=== PATIENT | female | born 1985 | race Caucasian/White ===

== ENCOUNTER 2024-04-15 10:12 | Outpatient (AMB) | payer OTHER, SELFPAY ==
[2024-04-15 10:15] VITALS: BP 124/78; PULSE 64; O2SAT 97; BMI 27.8
--- NOTE | 2024-04-15 10:15 | MHC.PC.OV ---
Vital Signs 04/15/24 10:15 Height 5 ft Weight 142 lb 8 oz BMI 27.8 BP 124/78 Blood Pressure Location Lt brachial Position Sitting Pulse 64 Pulse Source Pulse Oximeter Pulse Oximetry (%) 97 Oxygen Delivery Method Room Air Intake Visit Reasons: medical and health services manager, request a physical Intake Note: Patient is here as a new patient with cardiac issues, has a general repair mechanic Dr. Ingram. Is last menstrual period known: Yes Last menstrual period: 04/10/24 Allergies No Known Allergies Allergy (Verified 04/15/24 10:19) Tobacco use date assessed: 04/15/24 Dental Screening Dental Screen Date: 04/15/24 Did you have a dental visit in the last 12 months?: Yes Did you have a dental problem in the last 6 months where you did not have access to dental care?: No Was dental information given to patient?: Patient has dentist HPI medical and health services manager, request a physical HPI Details New Patient? ?? Prior PCP:? No PCP x 10 yrs Last office visit/CPE:? None in past year Acute issue(s):? h/o SVT since 2 yrs ago. Had been on Metoprolol but had breakthrough and was given Flecanide and has it for prn.. Has Press Setup Operator at [facility], Dr Munroe. Still feels like her heart rate is still fluctuating. ?? PMHx:? SVT & on Flecanide. Preeclamsia. SurgHx:? 2021. [place] Te[place] FHx:? Mom: HLD, COPD, Fibromyalgia, Bipolar, Depression. Dad: HLD, HTN. mGM DM. GF: Heart Disease, Asthma. SocHx: Nonsmoker. EtOH: Social 1-2 dr 1 or 2 x a week. No drugs PFSH Medical History (Updated 04/15/24 @ 11:03 by Andrew Vickers) delivery delivered Pre-eclampsia SVT (supraventricular tachycardia) Surgical History (Updated 04/15/24 @ 10:26 by Vicki Winchester CMA) History of wisdom tooth extraction Family History (Updated 04/15/24 @ 10:29 by Vicki Winchester CMA) Mother COPD (chronic obstructive pulmonary disease) Fibromyalgia High cholesterol Bipolar 1 disorder Anxiety Substance abuse in family Mental health disorder Father Heart disease High cholesterol High blood pressure Substance abuse in family Maternal Grandmother Mental health disorder Social History (Updated 04/15/24 @ 10:32 by Vicki Winchester CMA) Household Members: Family Both parents involved: No Caregiver staying overnight: No Housing: House Are you a primary career development engineer to a significant other at home: Yes Do you presently have visiting nurse or other home services: No 75 years or older and lives alone: No Alcohol intake: never Comment: former Patient Tobacco Use Status: Never used Tobacco e-Cigarette/Vaping Use: Former Use Use of substances other than those prescribed or required for medical reasons: No Have you been hit, kicked, punched, or otherwise hurt by someone within the past year? If so, by whom?: No Do you feel safe in your current relationship?: Yes Is there a partner from a previous relationship who is making you feel unsafe now?: No Are you made to feel afraid or neglected: No Special opal needs: No Are you DNR?: No Advance Directives: No Advance Directives Information Provided: No Advance Directives on File: No Healthcare Proxy: No service: No Current occupational status: employed Current occupation: channel sales manager for insurance. Cognitive needs: No Hearing needs: No Vision needs: Yes (Patient wears glasses) Female Reproductive History Menstrual Date of last menstrual period: 04/10/24 Questionnaire PHQ-9 Over the last 2 weeks, how often have you been bothered by any of the following problems? 1. Little interest or pleasure in doing things: not at all 2. Feeling down, depressed, or hopeless: not at all 3. Trouble falling or staying asleep, or sleeping too much: not at all 4. Feeling tired or having little energy: not at all 5. Poor appetite or overeating: not at all 6. Feeling bad about yourself - or that you are a failure or have let yourself or your family down: not at all 7. Trouble concentrating on things, such as reading the newspaper or watching television: not at all 8. Moving or speaking so slowly that other people could have noticed. Or the opposite - being so fidgety or restless that you have been moving around a lot more than usual: not at all 9. Thoughts that you would be better off or of hurting yourself in some way: not at all Total score: 0 Depression Screening Interpretation: Negative Depression Screening Done: Yes 71083 - PHQ-9 Billing: Yes Source: Developed by Drs. Baldemar Gillespie, Davida Solis, Waldo Rosales and colleagues, with an educational ramos from [employer]. Thrive Questionnaire Date Thrive assessed: 04/15/24 I am a: Patient What is your living situation today?: I have a steady place to live Within the past 12 months, did the food you bought not last and you didn't have the money to get more?: Never true Within the past 12 months, did you worry whether your food would run out before you got money to buy more?: Never true Do you have trouble paying for medicines?: No Do you have trouble getting transportation to medical appointments?: No Do you have trouble paying your heating and electricity bill?: No Do you have trouble taking care of your child, family member or friend?: No Do you have trouble with day-to-day activities such as bathing, preparing meals, shopping, managing finances, etc.?: No Are you currently unemployed and looking for a job?: No Are you interested in more education?: Yes THRIVE Score: 0 AUDIT C Alcohol Use Questionnaire (AUDIT-C) 1. How often do you have a drink containing alcohol?: Never 3. How often do you have six or more drinks on one occasion?: Never Total Score: 0 CHI-7 AMB Questionnaire CHI-7 Date CHI - 7 assessed: 04/15/24 Feeling nervous, anxious, or on edge: 3 = Nearly every day Not being able to stop or control worryin = Nearly every day Worrying too much about different things: 3 = Nearly every day Trouble relaxin = More than half the days Being so restless that it is hard to sit still: 2 = More than half the days Becoming easily annoyed or irritable: 3 = Nearly every day Feeling afraid as if something awful might happen: 2 = More than half the days Total CHI-7 score (0-4 normal; 5-9 mild; 10-14 moderate; 15-21 severe): 18 Source: Developed by Drs. Baldemar Gillespie, Waldo Hernandez and colleagues, with an educational ramos from [employer]. CHI-7 Assessment Billing CHI-7 Assessment Tool: CHI-7 Assessment 47427 Review of Systems Const Denies chills, Denies fatigue, Denies fever(s), Denies headache(s) and Denies weakness ENT Denies dizziness and Denies headache(s) Card Denies chest pain, Denies lightheadedness, Denies dyspnea and Denies other (Palpitations) Resp Denies cough, Denies dyspnea, Denies wheezing and Denies other ( shortness of breath) Musc Denies numbness and Denies tingling Neuro Denies dizziness, Denies headache(s), Denies numbness, Denies tingling, Denies paresthesias and Denies weakness Psych Denies anxiety and Denies depression Endo Denies fatigue Aller/Immun Denies wheezing Physical exam (Primary Care) Vital Signs: Last Vital Signs Pulse 64 04/15/24 10:15 BP 124/78 04/15/24 10:15 Pulse Ox 97 04/15/24 10:15 Oxygen Delivery Method Room Air 04/15/24 10:15 BMI result Body Mass Index 27.8 Tobacco/Smoking Status: Tobacco use Status Tobacco use date assessed 04/15/24 04/15/24 10:38 Patient Tobacco Use Status Never used Tobacco 04/15/24 10:38 e-Cigarette/Vaping Use Former Use 04/15/24 10:38 PHQ-9: PHQ-9 Score PHQ-9: Total score 0 04/15/24 10:58 Depression Screening Interpretation: Negative Thrive Assessment: Date of Thrive Assessment Date Thrive assessed 04/15/24 04/15/24 10:38 Const General: no acute distress and well developed Nutritional Appearance: well nourished Orientation/consciousness: [facility]: Yes normocephalic and Yes atraumatic Eyes General: appearance normal, both eyes and all related structures Pupils: Equal, round and reactive pupils present EOM: EOMs intact bilaterally Resp Effort & Inspection: normal respiratory effort Auscultation: clear to auscultation bilaterally Cardio Rate: regular rate Rhythm: regular rhythm Heart sounds: S1 normal heart sound present, S2 normal heart sound present, no gallops, no murmurs and no rubs Neuro General: patient oriented x3 and gait normal Cranial nerves: Yes Equal, round and reactive pupils present Psych Affect: normal affect Assessment and Plan Assessment & Plan (1) SVT (supraventricular tachycardia): Code(s): I47.10 - Supraventricular tachycardia, unspecified Plan: Recurrent?SVT?with?heart?rates?over?200?and?requiring?flecainide?by?emergency?responders. She?now?has?flecainide?available?p.r.n.?and?has?a?general repair mechanic?with?upcoming?follow-up?in?April.??Dr. Munroe from?[facility]. EKG: ?Mild?sinus?bradycardia,?normal?axis,?no?hypertrophy,?no?ST-T-wave?changes (2) Anxiety: Code(s): F41.9 - Anxiety disorder, unspecified Plan: Moderately?anxious,?particularly?regarding?her?heart?rhythm?which?appears?fine?today?and?I?reassured?her. We?can?follow-up?on?this?after?her?appointment?with?cardiology (3) Laboratory exam ordered as part of routine general medical examination: Code(s): Z00.00 - Encounter for general adult medical examination without abnormal findings Orders: Orders Comprehensive [place]. Panel Fast Today Z00.00 - Encounter for general adult medical examination without abnormal findings Lipid Panel Today Z00.00 - Encounter for general adult medical examination without abnormal findings Microalbumin, Random (w Creat) Today I10 - Essential (primary) hypertension TSH reflex Free T4 Today Z00.00 - Encounter for general adult medical examination without abnormal findings Complete Blood Count Auto Diff Today Z00.00 - Encounter for general adult medical examination without abnormal findings UA and rflx microscopic Today Z00.00 - Encounter for general adult medical examination without abnormal findings Coding Level of Care Code New Pt Level 3 (80983) Diagnoses SVT (supraventricular tachycardia) I47.10 Anxiety F41.9 Laboratory exam ordered as part of routine general medical examination Z00.00 Additional Codes CHI-7 Assessment Billing - CHI-7 Assessment Tool: CHI-7 Assessment 68074 ([id number])
== END 2024-04-15 11:40 | disposition home or self-care (01) ==
PROVIDERS: PCP Family Medicine; Visit Provider Family Medicine
DX: I47.10 Supraventricular tachycardia, unspecified (principal); F41.9 Anxiety disorder, unspecified
CPT/HCPCS: 99203

== ENCOUNTER 2024-06-18 07:38 | Outpatient (REF) | payer OTHER, SELFPAY ==
[2024-06-18 11:28] LABS: Appearance Urine Clear; Color Urine Yellow; Glucose Urine UA Negative (Negative); Leukocyte Esterase Urine Negative (Negative); Nitrite Urine Negative (Negative); PH 6.5 (5.0-9.0); Urine Blood Negative (Negative); Urine Ketones Negative (Negative); Urine Protein Negative (Neg-Trace)
[2024-06-18 11:31] LABS: MANUAL DIFF FLAG NO
[2024-06-18 11:34] LABS: Basophils Absolute Auto 0.1 X10*3/uL (0.0-0.2); Basophils Percent Auto 0.7 % (0-2); Eosinophils Absolute Auto 0.2 X10*3/uL (0.0-0.4); Eosinophils Percent Auto 2.9 % (0-4); Hematocrit 37.8 % (37.0-47.0); Hemoglobin 12.8 g/dl (12.0-16.0); Imm Gran Abs Auto 0.02 X10*3/uL (0.00-0.03); Imm Gran Pct Auto 0.3 % (0.0-0.4); Lymphocytes Absolute Auto 2.4 X10*3/uL (1.2-4.9); Lymphocytes Percent Auto 31.9 % (20-40); Mean Corpuscular HGB Conc 33.9 g/dl (31.0-35.0); Mean Corpuscular Hemoglobin 30.5 pg (27.0-33.0); Mean Corpuscular Volume 90.2 fL (80.0-98.0); Mean Platelet Volume 10.4 fL (9.4-12.3); Monocytes Absolute Auto 0.8 X10*3/uL (0.1-1.2); Monocytes Percent Auto 10.4 % (2-11); Neutrophils Percent Auto 53.8 % (45-73); Platelet Count 240 X10*3/uL (160-400); Red Blood Count 4.19 X10*6/uL (4.20-5.50); Red Cell Distribution Width 12.9 % (11.0-16.0); White Blood Count 7.5 X10*3/uL (4.8-10.8)
[2024-06-18 12:01] LABS: Alanine Aminotransferase 24 U/L (0-31); Alkaline Phosphatase 54 U/L (39-117); Anion Gap 8 (12-20); Aspartate Amino Transferase 26 U/L (5-31); Bilirubin Total 0.5 mg/dL (0.0-1.0); Blood Urea Nitrogen 15 mg/dL (9-16); Calcium 9.5 mg/dL (8.4-10.2); Carbon Dioxide 27 mmol/L (22-29); Chloride 106 mmol/L (96-108); Cholesterol 152 mg/dL (<200); Estimated Glomerular Filt Rate > 60; Glucose Fasting 92 mg/dL (60-99); HDL Cholesterol 52 mg/dL (>40); LDL Cholesterol Calculated 84 mg/dL (<100); Sodium 137 mmol/L (135-145); Total Protein 7.5 g/dL (6.5-8.0); Triglycerides 82 mg/dL (<150)
[2024-06-18 12:19] LABS: TSH reflex Free T4 2.03 uIU/mL (0.32-4.0)
[2024-06-18 12:35] LABS: Creatinine Urine 122.75 mg/dL; Microalbumin Urine < 5.0 mg/L
== END 2024-06-18 07:39 | disposition home or self-care (01) ==
LOC: HO.WFDLDS 07:38
PROVIDERS: Visit Provider Family Medicine
DX: Z00.00 Encounter for general adult medical examination without abnormal findings (principal); I10 Essential (primary) hypertension
CPT/HCPCS: 36415; 80053; 80061; 81003; 82043; 82570; 84443; 85025

== ENCOUNTER 2024-06-23 14:48 | Outpatient (AMB) | payer OTHER, SELFPAY ==
--- NOTE | 2024-06-23 14:54 | A.OFFPC_ITS ---
Vital Signs 06/23/24 15:39 Height 5 ft Weight 144 lb 8 oz BMI 28.2 BP 100/70 Blood Pressure Location Lt brachial Position Sitting Respiration 16 Pulse 72 Pulse Source Pulse Oximeter Temp 98 F Temp Source Tympanic Pulse Oximetry (%) 98 Oxygen Delivery Method Room Air Intake Visit Reasons: 2 month follow up Intake Note: pt questioning if today is a physical exam / follow up Is last menstrual period known: Yes Last menstrual period: 06/25/24 Post menopausal: No Patient : No Allergies No Known Allergies Allergy (Verified 06/23/24 14:56) Tobacco use date assessed: 04/15/24 Dental Screening Dental Screen Date: 04/15/24 HPI 2 month follow up HPI Details 38 y/o female presents for a CPE with f/ u labs and health maintenance. Labs were drawn 06/18/24. Reviewed labs with pt. Triglycerides 82. TC 152. LDL 84. HDL 52. Her labs are fine. Last pap smear about 3 months ago which was normal per pt. No Fhx of breast cancer. HPI Comments History of Present Illness Details Documentation assistance for Freddy Whitman MD, was provided by Andrew Vickers, Flatbed Stitcher on 06/23/2024 at 3:12 PM EST. I, Dr. Whitman, have read, observed, and verified documentation. [facility] Medical History (Updated 06/23/24 @ 15:12 by Andrew Vickers) delivery delivered Pre-eclampsia SVT (supraventricular tachycardia) Surgical History (Updated 04/15/24 @ 10:26 by Vicki Winchester CMA) History of wisdom tooth extraction Family History (Updated 04/15/24 @ 10:29 by Vicki Winchester CMA) Mother COPD (chronic obstructive pulmonary disease) Fibromyalgia High cholesterol Bipolar 1 disorder Anxiety Substance abuse in family Mental health disorder Father Heart disease High cholesterol High blood pressure Substance abuse in family Maternal Grandmother Mental health disorder Social History (Updated 04/15/24 @ 10:32 by Vicki Winchester CMA) Household Members: Family Both parents involved: No Caregiver staying overnight: No Housing: House Are you a primary ocular care aide to a significant other at home: Yes Do you presently have visiting nurse or other home services: No 75 years or older and lives alone: No Alcohol intake: never Comment: former Patient Tobacco Use Status: Never used Tobacco e-Cigarette/Vaping Use: Former Use Special opal needs: No service: No Current occupational status: employed Current occupation: indirect sales representative for insurance. Cognitive needs: No Hearing needs: No Vision needs: Yes (Patient wears glasses) Female Reproductive History Menstrual Date of last menstrual period: 06/25/24 Questionnaire PHQ-9 Over the last 2 weeks, how often have you been bothered by any of the following problems? 1. Little interest or pleasure in doing things: not at all 2. Feeling down, depressed, or hopeless: not at all 3. Trouble falling or staying asleep, or sleeping too much: not at all 4. Feeling tired or having little energy: several days 5. Poor appetite or overeating: not at all 6. Feeling bad about yourself - or that you are a failure or have let yourself or your family down: not at all 7. Trouble concentrating on things, such as reading the newspaper or watching television: several days 8. Moving or speaking so slowly that other people could have noticed. Or the opposite - being so fidgety or restless that you have been moving around a lot more than usual: not at all 9. Thoughts that you would be better off or of hurting yourself in some way: not at all Total score: 2 Depression Screening Interpretation: Negative Depression Screening Done: Yes 26139 - PHQ-9 Billing: Yes Source: Developed by Drs. Baldemar Gillespie, Davida Solis, Waldo Rosales and colleagues, with an educational ramos from [employer]. Thrive Questionnaire Date Thrive assessed: 06/23/24 I am a: Patient What is your living situation today?: I have a steady place to live Within the past 12 months, did the food you bought not last and you didn't have the money to get more?: Never true Within the past 12 months, did you worry whether your food would run out before you got money to buy more?: Never true Do you have trouble paying for medicines?: No Do you have trouble getting transportation to medical appointments?: No Do you have trouble paying your heating and electricity bill?: No Do you have trouble taking care of your child, family member or friend?: No Do you have trouble with day-to-day activities such as bathing, preparing meals, shopping, managing finances, etc.?: No Are you currently unemployed and looking for a job?: No Are you interested in more education?: Yes Please select the resources that you would like help with: None Currently or been in a relationship where the following occur: No concerns reported THRIVE Score: 0 AUDIT C Alcohol Use Questionnaire (AUDIT-C) 1. How often do you have a drink containing alcohol?: Never 3. How often do you have six or more drinks on one occasion?: Never Total Score: 0 Score Reviewed/Action Taken: Yes CHI-7 AMB Questionnaire CHI-7 Date CHI - 7 assessed: 06/23/24 Feeling nervous, anxious, or on edge: 1 = Several days Not being able to stop or control worryin = Several days Worrying too much about different things: 1 = Several days Trouble relaxin = Several days Being so restless that it is hard to sit still: 0 = Not at all Becoming easily annoyed or irritable: 1 = Several days Feeling afraid as if something awful might happen: 1 = Several days Total CHI-7 score (0-4 normal; 5-9 mild; 10-14 moderate; 15-21 severe): 6 Source: Developed by Drs. Baldemar Gillespie, Davida Solis, Waldo Rosales and colleagues, with an educational ramos from [employer]. CHI-7 Assessment Billing CHI-7 Assessment Tool: CHI-7 Assessment 55338 Review of Systems Const Denies chills, Denies fatigue, Denies fever(s), Denies headache(s) and Denies weakness Eyes Denies change in vision ENT Denies dizziness, Denies headache(s), Denies hearing loss, Denies nasal congestion, Denies sinus pain, Denies sinus pressure and Denies sore throat Card Denies chest pain, Denies lightheadedness, Denies dyspnea and Denies other (palpitations) Resp Denies cough, Denies dyspnea and Denies wheezing GI Denies abdominal pain, Denies melena, Denies hematochezia, Denies change in bowel habits, Denies dyspepsia and Denies nausea Denies hematuria and Denies dysuria Musc Denies abnormal gait, Denies myalgias, Denies arthralgias, Denies numbness and Denies tingling Skin/Breast Denies rash, Denies unusual bruising and Denies wounds Neuro Denies abnormal gait, Denies dizziness, Denies headache(s), Denies memory loss, Denies numbness, Denies Sensory deficit (Neuro), Denies tingling and Denies weakness Psych Denies anxiety, Denies depression and Denies memory loss Endo Denies cold intolerance, Denies fatigue, Denies heat intolerance, Denies polydipsia and Denies polyuria Ilan/Lymph Denies easy bleeding and Denies easy bruising Aller/Immun Denies wheezing Physical exam (Primary Care) Vital Signs: Last Vital Signs Temp 98 F 06/23/24 15:39 Pulse 72 06/23/24 15:39 Resp 16 06/23/24 15:39 BP 100/70 06/23/24 15:39 Pulse Ox 98 06/23/24 15:39 Oxygen Delivery Method Room Air 06/23/24 15:39 BMI result Body Mass Index 28.2 Tobacco/Smoking Status: Tobacco use Status Tobacco use date assessed 04/15/24 06/23/24 15:00 Patient Tobacco Use Status Never used Tobacco 06/23/24 15:00 e-Cigarette/Vaping Use Former Use 06/23/24 15:00 PHQ-9: PHQ-9 Score PHQ-9: Total score 2 06/23/24 15:44 Depression Screening Interpretation: Negative Thrive Assessment: Date of Thrive Assessment Date Thrive assessed 06/23/24 06/23/24 15:00 Currently or been in a relationship where the following occur: No concerns reported Const General: no acute distress, well developed, alert and awake Nutritional Appearance: well nourished Orientation/consciousness: patient oriented x3 HENMT Head: Yes normocephalic and Yes atraumatic Ears: hearing grossly normal bilaterally and TM's normal bilaterally General nose exam: Normal external nose present and Normal nares present Mouth: Normal oral and palatal mucosa present and moist mucous membranes Teeth and gingiva: dentition normal Throat: Yes posterior oropharynx normal Eyes General: appearance normal, both eyes and all related structures Pupils: Equal, round and reactive pupils present and Pupil accommodation reflex normal EOM: EOMs intact bilaterally Neck Neck: Yes normal visual inspection, Yes no lymphadenopathy and Yes trachea midline Thyroid: Thyroid normal Carotids: no bruits Lymphatic: no lymphadenopathy noted Chest Chest palpation & inspection: normal inspection of the chest Resp Effort & Inspection: normal respiratory effort Auscultation: clear to auscultation bilaterally Cardio Rate: regular rate Rhythm: regular rhythm Heart sounds: S1 normal heart sound present, S2 normal heart sound present, no gallops, Murmur heart sound present (Slight systolic murmur ) and no rubs Bruits: no abdominal aortic bruits and no carotid bruits GI Palpation (GI): No Abdominal aortic bruit present, Soft to palpation, nontender, No hepatosplenomegaly present and No Rebound tenderness present Auscultation: normal bowel sounds General: Yes no CVA tenderness Back/Spine/Pelvis Back: no CVA tenderness Cervical Spine: cervical ROM normal and No Cervical spine tenderness Thoracic/Lumbar Spine: thoraco-lumbar ROM normal, No pain with thoraco-lumbar ROM, No thoracic spinal tenderness and No lumbar spinal tenderness Skin Lesions: no lesions Rashes: no rashes Trauma: no lacerations or abrasions Wounds: no wounds Nails: normal Neuro General: patient oriented x3 Cranial nerves: Yes Equal, round and reactive pupils present Cognition (Neuro): normal cognition Gait exam (Neuro): Normal gait present Motor exam (neuro): 5/5 motor strength present throughout Sensory Exam: No Sensory deficit (Neuro) Deep tendon reflexes (DTR's): Right patellar reflex intensity grade: 2+ and Left patellar reflex intensity grade: 2+ Extrem General: Yes normal to inspection and No edema Psych Appearance: grossly normal Affect: normal affect Attitude: cooperative Thought process: Normal thought process present Assessment and Plan Assessment & Plan (1) Adult general medical exam: Code(s): Z00.00 - Encounter for general adult medical examination without abnormal findings Plan: 38-year-old?female?presents?for?complete?physical?exam Exam?today?within?normal?range Encouraged?healthy?diet?with?active?lifestyle?and?plenty?of?exercise (2) SVT (supraventricular tachycardia): Code(s): I47.10 - Supraventricular tachycardia, unspecified Plan: Patient?has?had?SVTs?and?is?on?flecainide. Normal?rate?and?rhythm?to?auscultation?today She?has?seen?Dr. Munroe, cardiology?but?I?do?not?have?his?note.??I?have?requested?this. Patient?says?that?she?was?told?she?would?need?an?ablation ?and?wants?a?2nd?opinion.??She?has?already?scheduled?this?with?Dr. Cruz in?[place] in?July. We?can?follow-up?shortly?after (3) Anxiety: Code(s): F41.9 - Anxiety disorder, unspecified Plan: Patient?says?that?her?anxiety?was?primarily?due?to?a?tachycardia?and?palpitation s?which?have?decreased/resolved She?will?let?me?know?if?she?has?any?worsened?anxiety (4) Heart murmur: Code(s): R01.1 - Cardiac murmur, unspecified Plan: Seems?to?have?a?faint?2/6?systolic?murmur?over?mitral?region She?has?an?appointment?with?cardiology?already?and?I?recommended she?discuss?with?Cardiology (5) Screening for cervical cancer: Code(s): Z12.4 - Encounter for screening for malignant neoplasm of cervix Plan: Followed?by??[facility]?and?up-to-date?with?Pap?smears Patient Instructions: She?will?return?in?late?July/early?August?for?follow- up?SVT?and?review?recommendations?from?Cardiology?and?her?cardiology?2nd?opinion . Coding Level of Care Code Est Pt Level 4 (10887) Diagnoses Adult general medical exam Z00.00 SVT (supraventricular tachycardia) I47.10 Anxiety F41.9 Heart murmur R01.1 Screening for cervical cancer Z12.4 Additional Codes CHI-7 Assessment Billing - CHI-7 Assessment Tool: CHI-7 Assessment [id number] ([id number])
[2024-06-23 15:39] VITALS: BP 100/70; PULSE 72; RESP 16; TEMP 36.6; O2SAT 98; BMI 28.2
== END 2024-06-23 15:47 | disposition home or self-care (01) ==
PROVIDERS: PCP Family Medicine; Visit Provider Family Medicine
DX: Z00.00 Encounter for general adult medical examination without abnormal findings (principal); I47.10 Supraventricular tachycardia, unspecified; F41.9 Anxiety disorder, unspecified; R01.1 Cardiac murmur, unspecified
CPT/HCPCS: 99395

== ENCOUNTER 2024-10-23 11:32 | Outpatient (AMB) | payer OTHER, SELFPAY ==
--- NOTE | 2024-10-23 11:40 | A.OFFPC_ITS ---
Vital Signs 10/23/24 11:43 Height 5 ft Weight 146 lb 8 oz BMI 28.6 BP 110/70 Blood Pressure Location Lt brachial Position Sitting Respiration 14 Pulse 72 Pulse Source Pulse Oximeter Pulse Oximetry (%) 99 Oxygen Delivery Method Room Air Intake Visit Reasons: f/u SVT Intake Note: f/u SVT Allergies No Known Allergies Allergy (Verified 10/23/24 11:42) Tobacco use date assessed: 04/15/24 Dental Screening Dental Screen Date: 04/15/24 HPI f/u SVT HPI Details 38 y/o female presents to f/u SVT. She had an appointment with Dr. Munroe and has sought a 2nd opinion from Dr. Cruz in [facility] for SVT. Dr. Munroe had recommended cardiac ablation. Awaiting 2nd opinion. Had noted 2/6 systolic murmur but this seems to have resolved. [facility] Medical History (Updated 06/23/24 @ 15:12 by Andrew Vickers) delivery delivered Pre-eclampsia SVT (supraventricular tachycardia) Surgical History (Updated 04/15/24 @ 10:26 by Vicki Winchester [facility]) History of wisdom tooth extraction Family History (Updated 04/15/24 @ 10:29 by Vicki Winchester CMA) Mother COPD (chronic obstructive pulmonary disease) Fibromyalgia High cholesterol Bipolar 1 disorder Anxiety Substance abuse in family Mental health disorder Father Heart disease High cholesterol High blood pressure Substance abuse in family Maternal Grandmother Mental health disorder Social History (Updated 04/15/24 @ 10:32 by Vicki Winchester CMA) Household Members: Family Both parents involved: No Caregiver staying overnight: No Housing: House Are you a primary landcare officer to a significant other at home: Yes Do you presently have visiting nurse or other home services: No 75 years or older and lives alone: No Alcohol intake: never Comment: former Patient Tobacco Use Status: Never used Tobacco e-Cigarette/Vaping Use: Former Use Special opal needs: No service: No Current occupational status: employed Current occupation: independent sales representative for insurance. Cognitive needs: No Hearing needs: No Vision needs: Yes (Patient wears glasses) Questionnaire PHQ-9 Over the last 2 weeks, how often have you been bothered by any of the following problems? 1. Little interest or pleasure in doing things: more than half the days 2. Feeling down, depressed, or hopeless: not at all 3. Trouble falling or staying asleep, or sleeping too much: not at all 4. Feeling tired or having little energy: several days 5. Poor appetite or overeating: not at all 6. Feeling bad about yourself - or that you are a failure or have let yourself or your family down: not at all 7. Trouble concentrating on things, such as reading the newspaper or watching television: several days 8. Moving or speaking so slowly that other people could have noticed. Or the opp osite - being so fidgety or restless that you have been moving around a lot more than usual: not at all 9. Thoughts that you would be better off or of hurting yourself in some way: not at all Total score: 4 Source: Developed by Drs. Baldemar Gillespie, Davida Solis, Waldo Rosales and colleagues, with an educational ramos from [employer]. Thrive Questionnaire Date Thrive assessed: 06/23/24 I am a: Patient What is your living situation today?: I have a steady place to live Within the past 12 months, did the food you bought not last and you didn't have the money to get more?: Never true Within the past 12 months, did you worry whether your food would run out before you got money to buy more?: Never true Do you have trouble paying for medicines?: No Do you have trouble getting transportation to medical appointments?: No Do you have trouble paying your heating and electricity bill?: No Do you have trouble taking care of your child, family member or friend?: No Do you have trouble with day-to-day activities such as bathing, preparing meals, shopping, managing finances, etc.?: No Are you currently unemployed and looking for a job?: Yes Are you interested in more education?: No Please select the resources that you would like help with: None Currently or been in a relationship where the following occur: No concerns reported THRIVE Score: 0 AUDIT C Alcohol Use Questionnaire (AUDIT-C) 1. How often do you have a drink containing alcohol?: Never Total Score: 0 CHI-7 AMB Questionnaire CHI-7 Date CHI - 7 assessed: 06/23/24 Feeling nervous, anxious, or on edge: 2 = More than half the days Not being able to stop or control worryin = Several days Worrying too much about different things: 1 = Several days Trouble relaxin = More than half the days Being so restless that it is hard to sit still: 1 = Several days Becoming easily annoyed or irritable: 1 = Several days Feeling afraid as if something awful might happen: 0 = Not at all Total CHI-7 score (0-4 normal; 5-9 mild; 10-14 moderate; 15-21 severe): 8 Source: Developed by Drs. Baldemar Gillespie, Davida Solis, Waldo Rosales and colleagues, with an educational ramos from [employer]. Review of Systems Const Denies chills, Denies fatigue, Denies fever(s), Denies headache(s) and Denies weakness ENT Denies dizziness and Denies headache(s) Card Denies dyspnea Resp Denies cough, Denies dyspnea, Denies wheezing and Denies other (shortness of breath) Musc Denies numbness and Denies tingling Neuro Denies dizziness, Denies headache(s), Denies numbness, Denies tingling and D enies weakness Psych Denies anxiety and Denies depression Endo Denies fatigue Aller/Immun Denies wheezing Physical exam (Primary Care) Vital Signs: Last Vital Signs Pulse 72 10/23/24 11:43 Resp 14 10/23/24 11:43 BP 110/70 10/23/24 11:43 Pulse Ox 99 10/23/24 11:43 Oxygen Delivery Method Room Air 10/23/24 11:43 BMI result Body Mass Index 28.6 Tobacco/Smoking Status: Tobacco use Status Tobacco use date assessed 04/15/24 10/23/24 11:42 Patient Tobacco Use Status Never used Tobacco 10/23/24 11:42 e-Cigarette/Vaping Use Former Use 10/23/24 11:42 PHQ-9: PHQ-9 Score PHQ-9: Total score 4 10/23/24 11:42 Thrive Assessment: Date of Thrive Assessment Date Thrive assessed 06/23/24 10/23/24 11:42 Currently or been in a relationship where the following occur: No concerns reported Const General: well developed; No acute distress Nutritional Appearance: well nourished Orientation/consciousness: patient oriented x3 HENMT Head: Yes normocephalic and Yes atraumatic Eyes General: appearance normal, both eyes and all related structures Pupils: Equal, round and reactive pupils present EOM: EOMs intact bilaterally Resp Effort & Inspection: normal respiratory effort Auscultation: clear to auscultation bilaterally Cardio Rate: regular rate Rhythm: regular rhythm Heart sounds: S1 normal heart sound present, S2 normal heart sound present, no gallops, no murmurs and no rubs Neuro General: patient oriented x3 and gait normal Cranial nerves: Yes Equal, round and reactive pupils present Psych Affect: normal affect Coding Level of Care Code Est Pt Level 3 (43430) Diagnoses SVT (supraventricular tachycardia) I47.10 Heart murmur R01.1 Assessment & Plan Assessment & Plan (1) SVT (supraventricular tachycardia): Code(s): I47.10 - Supraventricular tachycardia, unspecified Category: Medical Plan: Patient?was?seen?by?Dr. Munroe who?recommended?ablation.??She?got?a?2nd?opinion?with?Dr. Cruz in?[place]?who?gave?the?same?recommendations. She?is?not?currently?taking?flecainide?but?keeps?as ? pill?in?pocket?strategy and?has?had?a?couple?other?episodes?since.??She?uses?Valsalva?which?does?help. She?is?leaning?towards?getting?ablation?and?I?discuss?this?with?her?and?should?t hat?I?feel?this?is?right?course?as?well?given?her?age. I?do?not?have?the?note?from??yet?but?I?will?request?this. Follow-up?with?Dr. Munroe. (2) Heart murmur: Code(s): R01.1 - Cardiac murmur, unspecified Category: Medical Plan: Had?heard?a?faint?murmur?at?her?last?appointment. This?seems?to?have?resolved. Nevertheless,?note?from? comments that?she?had?no?structural?abnormalities?of?her?heart?on?echocardiogram. This?has?resolved. Possible?dehydration/low volume state?at?last?exam.??Encouraged?good?hydration
[2024-10-23 11:43] VITALS: BP 110/70; PULSE 72; RESP 14; O2SAT 99; BMI 28.6
== END 2024-10-23 12:13 | disposition home or self-care (01) ==
PROVIDERS: PCP Family Medicine; Visit Provider Family Medicine
DX: I47.10 Supraventricular tachycardia, unspecified (principal); R01.1 Cardiac murmur, unspecified

== ENCOUNTER → 2024-10-23 11:32 | Outpatient (BNVA) | payer OTHER, SELFPAY | PROVIDERS: PCP Family Medicine; Visit Provider Family Medicine ==

== ENCOUNTER 2025-04-10 09:19 | Outpatient (REF) | payer OTHER, SELFPAY ==
[2025-04-10 11:19] LABS: MANUAL DIFF FLAG NO
[2025-04-10 11:35] LABS: Basophils Percent Auto 0.5 % (0-2); Eosinophils Absolute Auto 0.2 X10*3/uL (0.0-0.4); Eosinophils Percent Auto 1.9 % (0-4); Hematocrit 39.2 % (37.0-47.0); Imm Gran Abs Auto 0.02 X10*3/uL (0.00-0.03); Imm Gran Pct Auto 0.3 % (0.0-0.4); Lymphocytes Absolute Auto 2.3 X10*3/uL (1.2-4.9); Lymphocytes Percent Auto 29.6 % (20-40); Mean Corpuscular HGB Conc 33.2 g/dl (31.0-35.0); Mean Corpuscular Hemoglobin 29.9 pg (27.0-33.0); Mean Corpuscular Volume 90.1 fL (80.0-98.0); Mean Platelet Volume 10.3 fL (9.4-12.3); Monocytes Absolute Auto 0.7 X10*3/uL (0.1-1.2); Monocytes Percent Auto 8.5 % (2-11); Neutrophils Absolute Auto 4.6 x10*3/uL (2.0-8.3); Neutrophils Percent Auto 59.2 % (45-73); Platelet Count 255 X10*3/uL (160-400); Red Blood Count 4.35 X10*6/uL (4.20-5.50); Red Cell Distribution Width 12.6 % (11.0-16.0); White Blood Count 7.8 X10*3/uL (4.8-10.8)
[2025-04-10 12:12] LABS: Alanine Aminotransferase 35 U/L (0-31); Albumin Level 4.2 g/dL (3.5-5.0); Alkaline Phosphatase 51 U/L (39-117); Anion Gap 10 (12-20); Aspartate Amino Transferase 33 U/L (5-31); Bilirubin Total 0.4 mg/dL (0.0-1.0); Blood Urea Nitrogen 14 mg/dL (9-16); Calcium 9.4 mg/dL (8.4-10.2); Carbon Dioxide 27 mmol/L (22-29); Chloride 107 mmol/L (96-108); Cholesterol 171 mg/dL (<200); Estimated Glomerular Filt Rate > 60; Glucose Fasting 92 mg/dL (60-99); HDL Cholesterol 54 mg/dL (>40); LDL Cholesterol Calculated 101 mg/dL (<100); Potassium 4.1 mmol/L (3.3-5.1); Sodium 140 mmol/L (135-145); TSH reflex Free T4 1.88 uIU/mL (0.32-4.0); Total Protein 7.7 g/dL (6.5-8.0); Triglycerides 81 mg/dL (<150)
[2025-04-10 14:32] LABS: Appearance Urine Clear; Color Urine Yellow; Glucose Urine UA Negative (Negative); Leukocyte Esterase Urine Negative (Negative); Nitrite Urine Negative (Negative); PH 6.5 (5.0-9.0); Urine Blood Negative (Negative); Urine Ketones Negative (Negative); Urine Protein Negative (Neg-Trace)
[2025-04-10 15:28] LABS: Creatinine Urine 45.41 mg/dL; Microalbumin Urine < 5.0 mg/L
== END 2025-04-10 09:20 | disposition home or self-care (01) ==
LOC: HO.WFDLDS 09:19
PROVIDERS: Visit Provider Family Medicine
DX: Z00.00 Encounter for general adult medical examination without abnormal findings (principal); I10 Essential (primary) hypertension
CPT/HCPCS: 36415; 80053; 80061; 81003; 82043; 82570; 84443; 85025

== ENCOUNTER 2025-04-14 09:01 | Outpatient (AMB) | payer OTHER, SELFPAY ==
--- NOTE | 2025-04-14 09:31 | A.OFFPC_ITS ---
Vital Signs 04/14/25 09:33 Height 5 ft Weight 148 lb 6 oz BMI 29.0 BP 98/64 Blood Pressure Location Lt brachial Position Sitting Respiration 16 Pulse 71 Pulse Source Pulse Oximeter Temp 98.0 F Temp Source Oral Pulse Oximetry (%) 99 Oxygen Delivery Method Room Air Intake Visit Reasons: annual physical Intake Note: patient is scheduled for an annual exam Small Stock Facer Required: No Is last menstrual period known: Yes Last menstrual period: 03/25/25 Post menopausal: No Patient : No Allergies No Known Allergies Allergy (Verified 04/14/25 09:32) Medication List - Last Reconciled 04/14/25 by Freddy Whitman MD multivitamin 1 tab PO DAILY Tobacco use date assessed: 04/15/24 Dental Screening Dental Screen Date: 04/15/24 HPI annual physical 2 HPI Details 39 y/o female presents for a CPE with f/ u labs and health maint. Labs drawn 04/10/25. Reviewed labs with pt. Elevated liver enzymes - AST 33, ALT 35. Triglycerides 81. TC 171. LDL 101. HDL 54. Urine studies are fine. Complaints of plantar fasciitis. Complaints of R ankle pain x2 months. She notes she is up to date with her pap smears. [facility] Medical History (Updated 04/14/25 @ 10:05 by Andrew Vickers) Heart murmur delivery delivered Pre-eclampsia SVT (supraventricular tachycardia) Surgical History (Updated 04/15/24 @ 10:26 by Vicki Winchester CMA) History of wisdom tooth extraction Family History (Updated 04/15/24 @ 10:29 by Vicki Winchester CMA) Mother COPD (chronic obstructive pulmonary disease) Fibromyalgia High cholesterol Bipolar 1 disorder Anxiety Substance abuse in family Mental health disorder Father Heart disease High cholesterol High blood pressure Substance abuse in family Maternal Grandmother Mental health disorder Social History (Updated 04/15/24 @ 10:32 by Vicki Winchester CMA) Household Members: Family Both parents involved: No Caregiver staying overnight: No Housing: House Are you a primary personal care home administrator to a significant other at home: Yes Do you presently have visiting nurse or other home services: No 75 years or older and lives alone: No Alcohol intake: never Comment: former Patient Tobacco Use Status: Never used Tobacco e-Cigarette/Vaping Use: Former Use Special opal needs: No service: No Current occupational status: employed Current occupation: sales management intern for insurance. Cognitive needs: No Hearing needs: No Vision needs: Yes (Patient wears glasses) Female Reproductive History Menstrual Date of last menstrual period: 03/25/25 Questionnaire PHQ-9 Over the last 2 weeks, how often have you been bothered by any of the following problems? 1. Little interest or pleasure in doing things: not at all 2. Feeling down, depressed, or hopeless: not at all 3. Trouble falling or staying asleep, or sleeping too much: several days 4. Feeling tired or having little energy: several days 5. Poor appetite or overeating: not at all 6. Feeling bad about yourself - or that you are a failure or have let yourself or your family down: not at all 7. Trouble concentrating on things, such as reading the newspaper or watching television: several days 8. Moving or speaking so slowly that other people could have noticed. Or the opposite - being so fidgety or restless that you have been moving around a lot more than usual: not at all 9. Thoughts that you would be better off or of hurting yourself in some way: not at all Total score: 3 Depression Screening Interpretation: Negative Depression Screening Done: Yes 64644 - PHQ-9 Billing: Yes Source: Developed by Drs. Baldemar Gillespie, Davida Solis, Waldo Rosales and colleagues, with an educational ramos from [employer]. Thrive Questionnaire Date Thrive assessed: 06/23/24 I am a: Patient What is your living situation today?: I have a steady place to live Within the past 12 months, did the food you bought not last and you didn't have the money to get more?: Never true Within the past 12 months, did you worry whether your food would run out before you got money to buy more?: Never true Do you have trouble paying for medicines?: No Do you have trouble getting transportation to medical appointments?: No Do you have trouble paying your heating and electricity bill?: No Do you have trouble taking care of your child, family member or friend?: No Do you have trouble with day-to-day activities such as bathing, preparing meals, shopping, managing finances, etc.?: No Are you currently unemployed and looking for a job?: No Are you interested in more education?: No Please select the resources that you would like help with: None Currently or been in a relationship where the following occur: No concerns reported THRIVE Score: 0 AUDIT C Alcohol Use Questionnaire (AUDIT-C) 1. How often do you have a drink containing alcohol?: 2-4 times a month 2. How many drinks containing alcohol do you have on a typical day when you are drinking?: 1 or 2 3. How often do you have six or more drinks on one occasion?: Never Total Score: 2 CHI-7 AMB Questionnaire CHI-7 Date CHI - 7 assessed: 04/14/25 Feeling nervous, anxious, or on edge: 1 = Several days Not being able to stop or control worryin = Several days Worrying too much about different things: 1 = Several days Trouble relaxin = Several days Being so restless that it is hard to sit still: 0 = Not at all Becoming easily annoyed or irritable: 1 = Several days Feeling afraid as if something awful might happen: 0 = Not at all Total CHI-7 score (0-4 normal; 5-9 mild; 10-14 moderate; 15-21 severe): 5 Source: Developed by Drs. Baldemar Gillespie, Davida Solis, Waldo Rosales and colleagues, with an educational ramos from [employer]. CHI-7 Assessment Billing CHI-7 Assessment Tool: CHI-7 Assessment 39455 Review of Systems Const Denies chills, Denies fatigue, Denies fever(s), Denies headache(s) and Denies weakness Eyes Denies change in vision ENT Denies dizziness, Denies headache(s), Denies hearing loss, Denies nasal congestion, Denies sinus pain, Denies sinus pressure and Denies sore throat Card Denies chest pain, Denies lightheadedness, Denies dyspnea and Denies other (pal pitations) Resp Denies cough, Denies dyspnea and Denies wheezing GI Denies abdominal pain, Denies melena, Denies hematochezia, Denies change in bowel habits, Denies dyspepsia and Denies nausea Denies hematuria and Denies dysuria Musc Denies abnormal gait, Denies myalgias, Denies arthralgias, Denies numbness and Denies tingling Skin/Breast Denies rash, Denies unusual bruising and Denies wounds Neuro Denies abnormal gait, Denies dizziness, Denies headache(s), Denies memory loss, Denies numbness, Denies Sensory deficit (Neuro), Denies tingling and Denies weakness Psych Denies anxiety, Denies depression and Denies memory loss Endo Denies cold intolerance, Denies fatigue, Denies heat intolerance, Denies polydipsia and Denies polyuria Ilan/Lymph Denies easy bleeding and Denies easy bruising Aller/Immun Denies wheezing Physical exam (Primary Care) Vital Signs: Last Vital Signs Temp 98.0 F 04/14/25 09:33 Pulse 71 04/14/25 09:33 Resp 16 04/14/25 09:33 BP 98/64 04/14/25 09:33 Pulse Ox 99 04/14/25 09:33 Oxygen Delivery Method Room Air 04/14/25 09:33 BMI result Body Mass Index 29.0 Tobacco/Smoking Status: Tobacco use Status Tobacco use date assessed 04/15/24 04/14/25 09:36 Patient Tobacco Use Status Never used Tobacco 04/14/25 09:36 e-Cigarette/Vaping Use Former Use 04/14/25 09:36 PHQ-9: PHQ-9 Score PHQ-9: Total score 3 04/14/25 09:44 Depression Screening Interpretation: Negative Thrive Assessment: Date of Thrive Assessment Date Thrive assessed 06/23/24 04/14/25 09:36 Currently or been in a relationship where the following occur: No concerns reported Const General: no acute distress, well developed, alert and awake Nutritional Appearance: well nourished Orientation/consciousness: patient oriented x3 HENMT Head: Yes normocephalic and Yes atraumatic Ears: hearing grossly normal bilaterally and TM's normal bilaterally General nose exam: Normal external nose present and Normal nares present Mouth: Normal oral and palatal mucosa present and moist mucous membranes Teeth and gingiva: dentition normal Throat: Yes posterior oropharynx normal Eyes General: appearance normal, both eyes and all related structures Pupils: Equal, round and reactive pupils present and Pupil accommodation reflex normal EOM: EOMs intact bilaterally Neck Neck: Yes normal visual inspection, Yes no lymphadenopathy and Yes trachea midline Thyroid: Thyroid normal Carotids: no bruits Lymphatic: no lymphadenopathy noted Chest Chest palpation & inspection: normal inspection of the chest Resp Effort & Inspection: normal respiratory effort Auscultation: clear to auscultation bilaterally Cardio Rate: regular rate Rhythm: regular rhythm Heart sounds: S1 normal heart sound present, S2 normal heart sound present, no gallops, no murmurs and no rubs Bruits: no abdominal aortic bruits and no carotid bruits GI Palpation (GI): No Abdominal aortic bruit present, Soft to palpation, nontender, No hepatosplenomegaly present and No Rebound tenderness present Auscultation: normal bowel sounds General: Yes no CVA tenderness Back/Spine/Pelvis Back: no CVA tenderness Cervical Spine: cervical ROM normal and No Cervical spine tenderness Thoracic/Lumbar Spine: thoraco-lumbar ROM normal, No pain with thoraco-lumbar ROM, No thoracic spinal tenderness and No lumbar spinal tenderness Skin Lesions: no lesions Rashes: no rashes Trauma: no lacerations or abrasions Wounds: no wounds Nails: normal Neuro General: patient oriented x3 Cranial nerves: Yes Equal, round and reactive pupils present Cognition (Neuro): normal cognition Gait exam (Neuro): Normal gait present Motor exam (neuro): 5/5 motor strength present throughout Sensory Exam: No Sensory deficit (Neuro) Deep tendon reflexes (DTR's): Right patellar reflex intensity grade: 2+ and Left patellar reflex intensity grade: 2+ Extrem General: Yes normal to inspection and No edema Psych Appearance: grossly normal Affect: normal affect Attitude: cooperative Thought process: Normal thought process present Coding Level of Care Code Est Pt Prev Care 18-39y([id number]) Diagnoses Adult general medical exam Z00.00 Elevated liver enzymes R74.8 Elevated LDL cholesterol level E78.00 Plantar fasciitis M72.2 Right ankle pain M25.571 Screening for cervical cancer Z12.4 Breast cancer screening by mammogram Z12.31 Additional Codes CHI-7 Assessment Billing - CHI-7 Assessment Tool: CHI-7 Assessment 25659 ([id number]) PHQ-9 - 89907 - PHQ-9 Billing: Yes ([id number]) Assessment & Plan Assessment & Plan (1) Adult general medical exam: Code(s): Z00.00 - Encounter for general adult medical examination without abnormal findings Category: Medical Plan: 39-year-old?female?presents?for?complete?physical?exam Encouraged?healthy?diet?with?active?lifestyle?and?plenty?of?exercise (2) Elevated liver enzymes: Code(s): R74.8 - Abnormal levels of other serum enzymes Category: Medical Plan: Mildly?elevated/borderline?liver?enzymes Encouraged?good?hydration?and?weight?loss Will?recheck?in?a?few?months (3) Elevated LDL cholesterol level: Code(s): E78.00 - Pure hypercholesterolemia, unspecified Category: Medical Plan: Mildly?elevated?LDL?cholesterol Encouraged?weight?loss?and?diet?lower?in?saturated?fats?and?cholesterol (4) Plantar fasciitis: Code(s): M72.2 - Plantar fascial fibromatosis Category: Medical Plan: Left?foot?plantar?fasciitis Patient?has?been?doing?exercising?for?this?without?resolution Demonstrated?additional?exercises?and?advised?NSAIDs Will?refer?to?ortho?as?this?has?ongoing?despite?exercise. (5) Right ankle pain: Code(s): M25.571 - Pain in right ankle and joints of right foot Category: Medical Plan: Right?ankle?sprain?x2?months Has?not?resolved Referred?to?Ortho (6) Screening for cervical cancer: Code(s): Z12.4 - Encounter for screening for malignant neoplasm of cervix Category: Medical Plan: Followed?by?[facility]?OBGYN Up-to-date (7) Breast cancer screening by mammogram: Code(s): Z12.31 - Encounter for screening mammogram for malignant neoplasm of breast Category: Medical Plan: She?will?be?due?for?her?1st?mammogram?prior?to?her?next?physical?in?May?2025 Ordered Orders: Orders Comprehensive [place]. Panel Fast Today R74.8 - Abnormal levels of other serum enzymes, Z00.00 - Encounter for general adult medical examination without abnormal findings MM tomosynthesis screening BI Today Z12.31 - Encounter for screening mammogram for malignant neoplasm of breast Lipid Panel Today E78.00 - Pure hypercholesterolemia, unspecified, Z00.00 - Encounter for general adult medical examination without abnormal findings Referrals Orthopedics Referral M25.571 - Pain in right ankle and joints of right foot, M72.2 - Plantar fascial fibromatosis
[2025-04-14 09:33] VITALS: BP 98/64; PULSE 71; RESP 16; TEMP 36.7; O2SAT 99; BMI 29.0
== END 2025-04-14 10:06 | disposition home or self-care (01) ==
LOC: HO.HMCFM 09:02
PROVIDERS: PCP Family Medicine; Visit Provider Family Medicine
DX: Z00.00 Encounter for general adult medical examination without abnormal findings (principal); R74.8 Abnormal levels of other serum enzymes; E78.00 Pure hypercholesterolemia, unspecified; M72.2 Plantar fascial fibromatosis; M25.571 Pain in right ankle and joints of right foot; Z12.4 Encounter for screening for malignant neoplasm of cervix; Z12.31 Encounter for screening mammogram for malignant neoplasm of breast

== ENCOUNTER → 2025-04-14 09:01 | Outpatient (BNVA) | payer OTHER, SELFPAY | PROVIDERS: PCP Family Medicine; Visit Provider Family Medicine | DX: Z00.00 Encounter for general adult medical examination without abnormal findings (principal); R74.8 Abnormal levels of other serum enzymes; E78.00 Pure hypercholesterolemia, unspecified; M72.2 Plantar fascial fibromatosis; M25.571 Pain in right ankle and joints of right foot | CPT/HCPCS: 96127 ==

== ENCOUNTER 2025-07-13 09:07 | Outpatient (REF) | payer OTHER, SELFPAY ==
--- OUTSIDE RECORDS SUMMARY | 2025-07-13 09:48 | XMS_ITS | Clinical Summary ---
Author Organization [facility] Address [address] [facility] [address] [place] [id number] Phone Care Team Providers Care Ethylene Oxide Panelboard Operator Name Role Phone Pcp, Unknown Primary Care Provider Unavailabl e Allergies No known active allergies Medications simethicone (MYLICON) 80 mg chewable tablet Take 80 mg by mouth. 05/25/2022 Active metoprolol tartrate (LOPRESSOR) 25 MG tablet Take 12.5 mg by mouth. 04/30/2022 Active flecainide (TAMBOCOR) 100 MG tablet Take 200 mg by mouth. 06/19/2022 Active docusate (COLACE) 100 mg tablet Take 100 mg by mouth. 05/25/2022 Active acetaminophen (TYLENOL) 325 mg capsule Take 650 mg by mouth. 05/25/2022 Active Active Problems Problem Noted Date Diagnosed Date Depression with anxiety 07/18/2023 07/18/20 23 SVT (supraventricular tachycardia) 07/18/2023 07/18/2023 LORENZA I (vulvar intraepithelial neoplasia I) 07/1807/18/2023 Immunizations No known immunizations Social History Tobacco Use Types Packs/Day Years Used Date Smoking Tobacco: Former Cigarettes Smokeless Tobacco: Never Tobacco Cessation:Counseling Given: Not Answered Education Answer Date Recorded Are you interested in more education? Not on alison e 07/18/2023 Are you concerned about learning? Not on file 07/18/2023 No 07/18/2023 No 07/18/2023 Digital Access Answer Date Recorded No 07/18/2023 No 07/18/2023 Reliable internet access at home? Not on file 07/18/2023 Device with a working camera? Not on file Comments Unknown Sex and Gender Information Value Date Recorded Sex Assigned at Not on file Legal Sex Female 11:38 AM EDT Gender Identity Not on file Sexual Orientation Not on file Last Filed Vital Signs Vital Sign Reading Time Taken Comments Blood Pressure 119/77 07/18/2023 12:04 PM EDT Pulse 80 07/18/2023 12:04 PM EDT Temperature 37.3 C (99.2 F) 07/18/2023 12:04 PM EDT Respiratory Rate 16 07/18/2023 12:04 PM EDT Oxygen Saturation 98% 07/18/2023 12:04 PM EDT Inhaled Oxygen Concentration - - Weight 63.5 kg (140 lb) 07/18/2023 12:04 PM EDT per pt Height - - Body Mass Index - - Plan of Treatment Health Maintenance Due Date Last Done Comments DEPRESSION SCREENING 1997 SMOKING Hx and SMOKELESS TOBACCO SCREENING 1998 HEPATITIS C SCREENING 2003 HIV ONE-TIME SCREENING (18-6 5 YEARS) 2003 PAP SMEAR 2006 COVID-19 VACCINE (2023-2 5 season) 2024 12/08/2021, 04/11/2021, 03/21/2021 Adult Td,Tdap Booster 08/31/2032 08/31/2022 , 12/18/2012 HEPATITIS A VACCINES Aged Out No long er eligible based on patient's age to complete this topic HIB VACCINES Aged Out No longer eligi ble based on patient's age to complete this topic MENINGOCOCCAL VACCINES (ACWY) Aged Out No longer eligible based on patient's age to complete this topic MENINGOCOCCAL VACCINES (B) Aged Out N o longer eligible based on patient's age to complete this topic PNEUMOCOCCAL VACCINES (0-49 years) Aged Out No longer eligible b ased on patient's age to complete this topic Medical Devices Not on file Insurance [employer] PPO CIGNA PPO CIGNA PPO CIGNA PPO CIGNA PPO CIGNA PPO Member Subscriber Plan / Payer (Ef fective 2019-Present) Name:DiazSofía Relation to Subscriber:Self Name:Sofía Diaz Payer ID:[id number] ([facility]) Type:PPO Address: [address] [place] [id number] Care Teams Ethylene Oxide Panelboard Operator Relationship Specialty Start Date End Date Pcp, Unknown PCP - General 07/18/23 Additional Source Comments The information contained in this document represents components of the legal health record. It is not the complete legal health record.[facility]
--- OUTSIDE RECORDS SUMMARY | 2025-07-13 09:48 | XMS_ITS ---
Author Name [facility] Organization Unknown Care Team Organization Name Specialty Phone Email Start Date End Da te [facility] CELSO VILLALPANDO Primary Care 03/26/20232023
--- OUTSIDE RECORDS SUMMARY | 2025-07-13 09:48 | XMS_ITS | Clinical Summary ---
Author Organization [address] [facility] Address [address] [place] [address] Phone Care Team Providers Care Airborne Weapons Technical Manager Name Role Phone Freddy Whitman MD Primary Care Provider Surgical History Surgery Date Site/Laterality Comments WISDOM TOOTH EXTRACTION PROCEDURE: HISTORICAL WISDOM TEETH EXTRACTION OTHER SURGICAL HISTORY PROCEDURE: [place] DILATION & CURETTAGE DX&/THER NONOBSTETRIC; COMMENT: 2006 Medical History Medical History Date Comments H/O colposcopy with cervical biopsy DX:H/O colposcopy with cervical biopsy Seasonal allergies 08/07/2015 DX:Seasonal a llergies Anxiety disorder DX:Anxiety diso rder Family History Medical History Relation Name Comments ADD / ADHD Brother Hyperlipidemia Father Hypertension Father Other: Unspecified Heart Disease Father Hyperlipidemia Maternal Grandfather Alzheimer's disease Maternal Grandmother Hyperlipidemia Mother Mental illness Mother depression, a nxiety Diabetes Paternal Grandmother Depression Sister Hypertension Sister Other: heart disease Sister Breast cancer Neg Hx Cancer of Small Bowel Neg Hx Colon cancer Neg Hx Kidney cancer Neg Hx Ovarian cancer Neg Hx Pancreatic cancer Neg Hx Prostate cancer Neg Hx Uterine cancer Neg Hx Relation Name Status Comments Aunt Alive Hypothyroidism Brother Alive ADHD Father Alive HTN, hyperlipid emia, Maternal Grandfather Heart D isease Maternal Grandmother Diabete s, depression Mother Alive Asthma, HTN, hy perlipidemia, depression, anxiety Paternal Grandfather [place] Paternal Grandmother Alive diabete s Sister Alive depression, ane [place] Social History Tobacco Use Types Packs/Day Years Used Date Smoking Tobacco: Never Smokeless Tobacco: Former Alcohol Use Standard Drinks/Week Comments Not Currently 3.3 (1 standard drink = 0.6 oz p ure alcohol) Comments Unknown Sex and Gender Information Value Date Recorded Sex Assigned at Not on file Legal Sex Female 2:41 AM EST Gender Identity Not on file Sexual Orientation Not on file Obstetrics History Last Filed Vital Signs Vital Sign Reading Time Taken Comments Blood Pressure 112/81 04/04/2022 3:55 PM EDT Pulse 80 04/04/2022 3:55 PM EDT Temperature - - Respiratory Rate - - Oxygen Saturation - - Inhaled Oxygen Concentration - - Weight 69.8 kg (153 lb 12.8 oz) 04/04/2022 3:55 PM EDT Height 152.4 cm (5') 04/04/2022 3:55 PM EDT Body Mass Index 30.04 04/04/2022 3:55 PM EDT Plan of Treatment Upcoming Encounters Date Type Department Care Team ([facility] st Contact Info) Description 08/26/2025 2:15 PM EDT Consult Orthopedic Surgery - [place] [id number] [phone] Deo Tobin, DPDorian [address] [address] Health Maintenance Due Date Last Done Comments Hepatitis B Vaccines (1 of 3 - 19+ 3-dose series) 2004 HIV Screening 10/28/2022 Hepatitis C Screening 10/28/2022 Social Influencers of Health Screening 10/28/2022 Cervical Cancer Screening: P ap Smear 11/26/2022 11/26/2019 DTaP,Tdap,and Td Vaccines (2 - Td or Tdap) 12/18/2022 12/18/2012 COVID-19 Vaccine (4 - 2023-2 5 season) 2024 12/08/2021, 04/11/2021, 03/21/2021 Depression Screening 11/19/2024 Influenza Vaccine (#1) 2025 HIB Vaccines Aged Out No longer eligi ble based on patient's age to complete this topic HPV Vaccines Aged Out No longer eligi ble based on patient's age to complete this topic Hepatitis A Vaccines Aged Out No long er eligible based on patient's age to complete this topic IPV Vaccines Aged Out No longer eligi ble based on patient's age to complete this topic MMR Vaccines Aged Out No longer eligi ble based on patient's age to complete this topic Meningococcal ACWY Vaccine Aged Out N o longer eligible based on patient's age to complete this topic Meningococcal B Vaccine Aged Out No l onger eligible based on patient's age to complete this topic Pneumococcal Vaccine: Pediatrics (0 to 5 Years) and At-Risk Patients (6 to 49 Years) Aged Out No longer eligible b ased on patient's age to complete this topic RSV Immunization Patients Under 20 months Aged Out No longer eligible b ased on patient's age to complete this topic Varicella Vaccines Aged Out No longer eligible based on patient's age to complete this topic Procedures Procedure Name Priority Date/Time Associated Diagnosis Comments PAP SMEAR Routine 11/26/2019 from Last 3 Months or Most Recently Relevant to Health Maintenance Results * Pap smear (11/26/2019) 11/26/2019 Narrative HISTORICAL TESTING LAB RESULTING AGENCY - 12/01/2019 10:01 AM EST [id number] THINPREP PAP, IMAGED: NEGATIVE FOR SQUAMOUS INTRAEPITHELIAL LESION AND MALIGNANCY . PAT MERCHANT , PHILLY(ASCP) (CASE ELECTRONICALLY SIGNED 12 01 2019) RESULT OF APTIMA HIGH RISK HPV ASSAY: HIGH RISK HPV: NEGATIVE (SEROTYPES 16,18,31,33,35,39,45,51,52,56,58,59,66,68) COMPLETED ON 2019-11-28 ADEQUACY: SATISFACTORY ENDOCERVICAL/TRANSFORMATION ZONE COMPONENT PRESENT. SOURCE: THINPREP PAP HPV ANY DX: REFLEX 16 AND 18, CERVICAL, IMAGED CLINICAL INFORMATION: HPV ANY DIAGNOSIS. Z12.4, Z01.419, PAP HX NEGATIVE us Izabel[facility] LAB CYTOLOGY ORDERABLES Fin al Result HISTORICAL TESTING LAB RESULTING AGENCY from Last 3 Months or Most Recently Relevant to Health Maintenance Insurance CIGNA Care Teams Airborne Weapons Technical Manager Relationship Specialty Start Date End Date Freddy Whitman MD [address] [place] [address] Dr Isha MA PCP - General Family Medicine 04/21/25
[2025-07-13 11:55] LABS: Alanine Aminotransferase 36 U/L (0-31); Albumin Level 4.4 g/dL (3.5-5.0); Alkaline Phosphatase 54 U/L (39-117); Anion Gap 10 (12-20); Aspartate Amino Transferase 37 U/L (5-31); Blood Urea Nitrogen 19 mg/dL (9-16); Calcium 9.5 mg/dL (8.4-10.2); Carbon Dioxide 29 mmol/L (22-29); Chloride 103 mmol/L (96-108); Cholesterol 195 mg/dL (<200); Estimated Glomerular Filt Rate > 60; HDL Cholesterol 54 mg/dL (>40); Potassium 4.2 mmol/L (3.3-5.1); Sodium 138 mmol/L (135-145); Total Protein 8.0 g/dL (6.5-8.0); Triglycerides 76 mg/dL (<150)
== END 2025-07-13 09:08 | disposition home or self-care (01) ==
LOC: HO.WFDLDS 09:07
PROVIDERS: Visit Provider Family Medicine
DX: Z00.00 Encounter for general adult medical examination without abnormal findings (principal); R74.8 Abnormal levels of other serum enzymes; E78.00 Pure hypercholesterolemia, unspecified
CPT/HCPCS: 36415; 80053; 80061

== ENCOUNTER 2025-07-16 11:46 | Outpatient (AMB) | payer OTHER, SELFPAY ==
--- NOTE | 2025-07-16 11:57 | A.OFFPC_ITS ---
Vital Signs 07/16/25 12:01 Height 5 ft Weight 145 lb BMI 28.3 BP 104/70 Blood Pressure Location Rt brachial Position Sitting Respiration 16 Pulse 59 Pulse Source Pulse Oximeter Temp 97.9 F Temp Source Oral Pulse Oximetry (%) 99 Oxygen Delivery Method Room Air Intake Visit Reasons: f/u liver enzymes Intake Note: patient here for follow up on liver enzymes Print Shop Stenographer Required: No Is last menstrual period known: Yes Last menstrual period: 06/29/25 Post menopausal: No Patient : No Allergies No Known Allergies Allergy (Verified 07/16/25 12:00) Medication List - Last Reconciled 07/16/25 by Freddy Whitman MD multivitamin 1 tab PO DAILY Tobacco use date assessed: 07/16/25 Dental Screening Dental Screen Date: 07/16/25 Did you have a dental visit in the last 12 months?: Yes Did you have a dental problem in the last 6 months where you did not have access to dental care?: No Was dental information given to patient?: Patient has dentist HPI f/u liver enzymes HPI Details 39 y/o female presents to f/u liver [facility]. Has complaints of vertigo/dizziness x1 month. Labs drawn 07/13/25. Reviewed labs with pt. Ongoing elevated liver enzymes. AST 37. ALT 36. HPI Comments History of Present Illness Details Documentation assistance for Freddy Whitman MD, was provided by Andrew Vickers,? Cell Assembly Pinner on 07/16/2025 at 12:37 PM EST. I, Dr. Whitman, have read, observed, and verified documentation. ?? [facility] Medical History (Updated 07/16/25 @ 12:36 by Andrew Vickers) Heart murmur delivery delivered Pre-eclampsia SVT (supraventricular tachycardia) Surgical History (Updated 04/15/24 @ 10:26 by Vicki Winchester CMA) History of wisdom tooth extraction Family History (Updated 04/15/24 @ 10:29 by Vicki Winchester CMA) Mother COPD (chronic obstructive pulmonary disease) Fibromyalgia High cholesterol Bipolar 1 disorder Anxiety Substance abuse in family Mental health disorder Father Heart disease High cholesterol High blood pressure Substance abuse in family Maternal Grandmother Mental health disorder Social History (Updated 04/15/24 @ 10:32 by Vicki Winchester CMA) Household Members: Family Both parents involved: No Caregiver staying overnight: No Housing: House Are you a primary wound care specialist to a significant other at home: Yes Do you presently have visiting nurse or other home services: No 75 years or older and lives alone: No Alcohol intake: never Comment: former Patient Tobacco Use Status: Never used Tobacco e-Cigarette/Vaping Use: Former Use Special opal needs: No service: No Current occupational status: employed Current occupation: residential sales representative for insurance. Cognitive needs: No Hearing needs: No Vision needs: Yes (Patient wears glasses) Female Reproductive History Menstrual Date of last menstrual period: 06/29/25 Questionnaire Thrive Questionnaire Date Thrive assessed: 06/23/24 CHI-7 AMB Questionnaire CHI-7 Date CHI - 7 assessed: 04/14/25 Source: Developed by Drs. Baldemar Gillespie, Davida Solis, Waldo Rosales and colleagues, with an educational ramos from [employer]. Review of Systems Const Denies chills, Denies fatigue, Denies fever(s), Denies headache(s) and Denies weakness ENT Denies dizziness and Denies headache(s) Card Denies dyspnea Resp Denies cough, Denies dyspnea, Denies wheezing and Denies other (shortness of breath) Musc Denies numbness and Denies tingling Neuro Denies dizziness, Denies headache(s), Denies numbness, Denies tingling and Denies weakness Psych Denies anxiety and Denies depression Endo Denies fatigue Aller/Immun Denies wheezing Physical exam (Primary Care) Vital Signs: Last Vital Signs Temp 97.9 F 07/16/25 12:01 Pulse 59 07/16/25 12:01 Resp 16 07/16/25 12:01 BP 104/70 07/16/25 12:01 Pulse Ox 99 07/16/25 12:01 Oxygen Delivery Method Room Air 07/16/25 12:01 BMI result Body Mass Index 28.3 Tobacco/Smoking Status: Tobacco use Status Tobacco use date assessed 07/16/25 07/16/25 12:04 Patient Tobacco Use Status Never used Tobacco 07/16/25 11:59 e-Cigarette/Vaping Use Former Use 07/16/25 11:59 Thrive Assessment: Date of Thrive Assessment Date Thrive assessed 06/23/24 07/16/25 11:59 Const General: well developed; No acute distress Nutritional Appearance: well nourished Orientation/consciousness: patient oriented x3 HENMT Head: Yes normocephalic and Yes atraumatic Eyes General: appearance normal, both eyes and all related structures Pupils: Equal, round and reactive pupils present EOM: EOMs intact bilaterally Resp Effort & Inspection: normal respiratory effort Auscultation: clear to auscultation bilaterally Cardio Rate: regular rate Rhythm: regular rhythm Heart sounds: S1 normal heart sound present, S2 normal heart sound present, no gallops, no murmurs and no rubs Neuro General: patient oriented x3 and gait normal Cranial nerves: Yes Equal, round and reactive pupils present Psych Affect: normal affect Coding Level of Care Code Est Pt Level 3 (00497) Diagnoses Elevated liver enzymes R74.8 Vertigo R42 Elevated LDL cholesterol level E78.00 Assessment & Plan Assessment & Plan (1) Elevated liver enzymes: Code(s): R74.8 - Abnormal levels of other serum enzymes Category: Medical Plan: Ongoing elevated liver enzymes. Will check ultrasound liver (2) Vertigo: Code(s): R42 - Dizziness and giddiness Category: Medical Plan: Vertigo with head movements. No orthostasis This has been going on for about a month Will refer her for physical therapy She can try meclizine and short course of prednisone as well (3) Elevated LDL cholesterol level: Code(s): E78.00 - Pure hypercholesterolemia, unspecified Category: Medical Plan: LDL cholesterol has increased Will have her continue working on a diet lower in saturated fats and cholesterol in recheck again in about 3 months. Orders: Orders US abdomen jimenez w elastography Today R74.8 - Abnormal levels of other serum enzymes Comprehensive [place]. Panel Fast Today E78.00 - Pure hypercholesterolemia, un specified, Z00.00 - Encounter for general adult medical examination without abnormal findings PT Evaluation and Treatment Today R42 - Dizziness and giddiness Lipid Panel Today E78.00 - Pure hypercholesterolemia, unspecified, Z00.00 - Encounter for general adult medical examination without abnormal findings Medications: New prednisone 40 mg (2 x 20 mg) PO DAILY 10 tabs 0RF 5 days meclizine 25 mg PO BID PRN 20 tabs 0RF dizziness 10 days
[2025-07-16 12:01] VITALS: BP 104/70; PULSE 59; RESP 16; TEMP 36.6; O2SAT 99; BMI 28.3
--- OUTSIDE RECORDS SUMMARY | 2025-07-16 12:57 | XMS_ITS | Clinical Summary ---
Author Organization [facility] Address [address] [facility] [address] [place] [phone] Phone Care Team Providers Care Electrical And Instrument Engineer Name Role Phone Pcp, Unknown Primary Care [...] Relation to Subscriber:Self Name:Sofía Diaz Payer ID:[id number] ([facility]) Type:PPO Address: [address] [place] [id number] Care Teams Electrical And Instrument Engineer Relationship Specialty Start Date End Date Pcp, Unknown PCP - General 07/18/23 Additional Source Comments The information contained in this document represents components of the legal health record. It is not the complete legal health record.[facility]
--- OUTSIDE RECORDS SUMMARY | 2025-07-16 12:57 | XMS_ITS | Clinical Summary ---
Author Organization 175 [facility] Address [address] [place] [address] Phone Care Team Providers Care Detailer Pharmaceuticals Name Role Phone Freddy Whitman MD Primary Care Provider Surgical History Surgery Date Site/Laterality Comments WISDOM TOOTH EXTRACTION PROCEDURE: HISTORICAL WISDOM TEETH EXTRACTION OTHER SURGICAL HISTORY PROCEDURE: [place] DILATION & CURETTAGE DX&/THER NONOBSTETRIC; COMMENT: 2006 [...] HTN, hy perlipidemia, depression, anxiety Paternal Grandfather [place] Paternal Grandmother Alive diabete s Sister Alive [...] Upcoming Encounters Date Type Department Care Team (Late st Contact Info) Description 08/26/2025 2:15 PM EDT Consult Orthopedic Surgery - [place] [address] [place] [phone] Deo Tobin, DPDorian [address] [place] [phone] Health Maintenance Due Date Last Done Comments [...] RESULTING AGENCY - 12/01/2019 10:01 AM EST [id number] THINPREP PAP, IMAGED: NEGATIVE FOR SQUAMOUS INTRAEPITHELIAL LESION AND MALIGNANCY . PHILLY POWELL(ASCP) (CASE ELECTRONICALLY SIGNED 12 01 2019) RESULT OF APTIMA HIGH RISK HPV ASSAY: HIGH RISK HPV: NEGATIVE (SEROTYPES 16,18,31,33,35,39,45,51,52,56,58,59,66,68) COMPLETED ON 2019-11-28 ADEQUACY: SATISFACTORY ENDOCERVICAL/TRANSFORMATION ZONE COMPONENT PRESENT. SOURCE: THINPREP PAP HPV ANY DX: REFLEX 16 AND 18, CERVICAL, IMAGED CLINICAL INFORMATION: HPV ANY DIAGNOSIS. Z12.4, Z01.419, PAP HX NEGATIVE Izabela Melgar [facility] LAB CYTOLOGY ORDERABLES Fin al Result HISTORICAL TESTING LAB RESULTING AGENCY from Last 3 Months or Most Recently Relevant to Health Maintenance Insurance [employer] Care Teams Detailer Pharmaceuticals Relationship Specialty Start Date End Date Freddy Whitman MD [address] [place] [address] Dr Isha MA PCP - General Family Medicine 04/21/25
== END 2025-07-16 12:40 | disposition home or self-care (01) ==
LOC: HO.HMCFM 11:46
PROVIDERS: PCP Family Medicine; Visit Provider Family Medicine
DX: R74.8 Abnormal levels of other serum enzymes (principal); R42 Dizziness and giddiness; E78.00 Pure hypercholesterolemia, unspecified